=== PATIENT | male | born 1990 | race Two or more races ===

== ENCOUNTER 2018-09-25 09:38 | Emergency (ER) | payer SELFPAY ==
--- NOTE | 2018-09-25 09:52 | EDM.PDOCBH ---
ED HPI GENERAL MEDICAL PROBLEM - General Chief Complaint: Behavioral/Psych Stated Complaint: UNKNOWN Time Seen by Provider: 09/25/18 09:40 Source of Information: Reports: Patient History Limitations: Reports: No Limitations - History of Present Illness INITIAL COMMENTS - FREE TEXT/NARRATIVE: History of present illness: []Patient was sent in from the [place] clinic after a 30 minute phone call with a new provider that he stated he was feeling more isolated. He denied suicidal or homicidal ideation but was sent here for a "mental health evaluation". Patient states he started a new job 2 weeks ago that is a new type of job that he feels he is still in the learning curve and he switch schedules to working nights. He has medical appointments but is having a difficult time scheduling them due to his sleep schedule. Patient has not had any medication changes but has altered the times he has taken his meds due to his new work schedule. Patient states he feels good that the [place] hasn't spent a good amount of time talking with him and referred him to the ER. He is comfortable going home and he reiterates that he is not suicidal or homicidal at this time. I also spoke to his who is at the bedside she states that this feeling he has his ongoing and stable and she does not see any concern that his depression is escalating. Review of systems: As per history of present illness and below otherwise all systems reviewed and negative. Past medical history: As per history of present illness and as reviewed below otherwise noncontributory. Surgical history: As per history of present illness and as reviewed below otherwise noncontributory. Social history: No reported history of drug or alcohol abuse. Family history: As per history of present illness and as reviewed below otherwise noncontributory. Physical exam: General: Well developed, well nourished in NAD HEENT: Atraumatic, normocephalic, pupils reactive, negative for conjunctival pallor or scleral icterus, mucous membranes moist, throat clear, neck supple, nontender, trachea midline. Lungs: Clear to auscultation, breath sounds equal bilaterally, chest nontender. Heart: S1S2, regular, negative for clicks, rubs, or JVD. Abdomen: NABS, Soft, nondistended, nontender. Negative for masses or hepatosplenomegaly. Negative for costovertebral tenderness. Pelvis: Stable nontender. Genitourinary: Deferred. Rectal: Deferred. Extremities: Atraumatic, negative for cords or calf pain. Neurovascular unremarkable. Neuro: Awake, alert, oriented. Cranial nerves II through XII unremarkable. Cerebellum unremarkable. Motor and sensory unremarkable throughout. Exam nonfocal. Skin:warm and dry Psych: Patient is alert, oriented, Diagnostics: None Therapeutics: None ED Course: Stable Impression: Medical Screening exam Prescriptions: None Plan: Resources for [facility] [employer] services and [employer] hotline given to patient. Definitive disposition and diagnosis as appropriate pending reevaluation and review of above. - Related Data Allergies Allergy/AdvReac Type Severity Reaction Status Date / Time No Known Allergies Allergy Verified 09/25/18 09:53 ED ROS GENERAL - Review of Systems Review Of Systems: ROS reveals no pertinent complaints other than HPI. ED EXAM, BEHAVIORAL HEALTH - Physical Exam Exam: See Below COURSE, BEHAVIORAL HEALTH COMP - Course Vital Signs: Last Vital Signs Temp 97.2 F 09/25/18 09:49 Pulse 67 09/25/18 09:49 Resp 16 09/25/18 09:49 BP 124/84 09/25/18 09:49 Pulse Ox 98 09/25/18 09:49 Departure - Departure Time of Disposition: 10:18 Disposition: Home, Self-Care 01 Condition: Good Clinical Impression: Encounter for medical screening examination - Discharge Information *PRESCRIPTION DRUG MONITORING PROGRAM REVIEWED*: No *COPY OF PRESCRIPTION DRUG MONITORING REPORT IN PATIENT PAULO: No Instructions: Medical Screening Exam Referrals: PCP,None [Primary Care Provider] - Forms: ED Department Discharge Additional Instructions: The following information is given to patients seen in the emergency department who are being discharged to home. This information is to outline your options for follow-up care. We provide all patients seen in our emergency department with a follow-up referral. The need for follow-up, as well as the timing and circumstances, are variable depending upon the specifics of your emergency department visit. If you don't have a primary care physician on staff, we will provide you with a referral. We always advise you to contact your personal physician following an emergency department visit to inform them of the circumstance of the visit and for follow-up with them and/or the need for any referrals to a consulting specialist. The emergency department will also refer you to a specialist when appropriate. This referral assures that you have the opportunity for follow-up care with a specialist. All of these measure are taken in an effort to provide you with optimal care, which includes your follow-up. Under all circumstances we always encourage you to contact your private physician who remains a resource for coordinating your care. When calling for follow-up care, please make the office aware that this follow-up is from your recent emergency room visit. If for any reason you are refused follow-up, please contact the [facility] Emergency Department at and asked to speak to the emergency department charge nurse. Follow-up with primary care, [place] [facility] if needed, and return if any suicidal thoughts occur.
== END 2018-09-25 10:40 | disposition home or self-care (01) ==
LOC: MW.ED 09:38
DX: Z13.9 Encounter for screening, unspecified (principal)
CPT/HCPCS: 99283

== ENCOUNTER 2018-10-29 13:35 | Emergency (ER) | payer OTHER ==
[2018-10-29] MEDS ORDERED: LORazepam 1 MG Tab PO ONE ×2 (14:26→14:27)
--- NOTE | 2018-10-29 14:54 | EDM.PDOC ---
ED HPI GENERAL MEDICAL PROBLEM - General Chief Complaint: General Stated Complaint: MEDICAL CLEARANCE Time Seen by Provider: 10/29/18 13:51 Source of Information: Reports: Patient, Police History Limitations: Reports: No Limitations - History of Present Illness INITIAL COMMENTS - FREE TEXT/NARRATIVE: HISTORY AND PHYSICAL: History of present illness: Patient is a 28-year-old male who is brought to the emergency room by law enforcement for medical clearance and mental health evaluation. Law enforcement apprehended patient after assaulting his . Patient reported that he planned to kill himself. Patient continues to have suicidal ideations, reports these have been ongoing intermittently over the past several years. States he has a history of anxiety, depression, suicidal ideation with last mental health evaluation being in 2013. He currently does see a primary care provider who has prescribed him hydralazine and duloxetine. States he has had some tele-psych evaluations for medication management. Patient denies any fever, chills, headache, change in vision, syncope or near syncope. Denies any chest pain, back pain, shortness of breath or cough. Denies any abdominal pain, nausea, vomiting, diarrhea, constipation or dysuria. Patient has been eating and drinking appropriately. Denies any recent drug or alcohol abuse. Review of systems: As per history of present illness and below otherwise all systems reviewed and negative. Past medical history: As per history of present illness and as reviewed below otherwise noncontributory. Surgical history: As per history of present illness and as reviewed below otherwise noncontributory. Social history: See social history for further information Family history: As per history of present illness and as reviewed below otherwise noncontributory. Physical exam: General: Well-developed and well-nourished 28-year-old male. Alert and oriented. Flat and nontoxic appearing and in no acute distress. HEENT: Atraumatic, normocephalic, pupils equal and reactive bilaterally, negative for conjunctival pallor or scleral icterus, mucous membranes moist, trachea midline. No drooling or trismus noted. No meningeal signs. No hot potato voice noted. Lungs: Clear to auscultation, breath sounds equal bilaterally, chest nontender. Heart: S1S2, regular rate and rhythm without overt murmur Abdomen: Soft, nondistended, nontender. Negative for masses. Negative for costovertebral tenderness. Pelvis is stable nontender. Skin: Intact, warm, dry. No lesions or rashes noted. Extremities: Atraumatic, moves all extremities per self without difficulty or deficits, negative for cords or calf pain. Neurovascular unremarkable. Neuro: Awake, alert, oriented. Cranial nerves II through XII unremarkable. Cerebellum unremarkable. Motor and sensory unremarkable throughout. Exam nonfocal. Notes: Enforcement states they're going to release him from their custody and would like our ambulance crew to transport this patient. A mental health emergency admission form was completed on this patient. Lab work is still pending at this time. Vital signs are stable. Physical examination is unremarkable. 1400: [facility] was contacted, no beds available at this time. 14:15[facility] was contacted, Dr. Allen, is agreeable to accepting this patient. He will be a direct admission. Diagnostics: CBC, CMP, UA, TSH, Acetaminophen, Salicylate, Drug Screen, ETOH Therapeutics: Ativan PO Impression: Mood Disorder, unspecified Suicidal ideation Plan: Transfer to [facility] for mental health evaluation. Going via ground EMS Definitive disposition and diagnosis as appropriate pending reevaluation and review of above. Right Shoulder Pain Score (Numeric/FACES): 8 - Related Data Allergies Allergy/AdvReac Type Severity Reaction Status Date / Time No Known Allergies Allergy Verified 10/29/18 13:48 Home Meds: Home Meds FLUoxetine HCl [Fluoxetine] 20 mg PO DAILY 09/25/18 [History] hydrOXYzine HCl [hydrOXYzine] 1 tab PO TID PRN 09/25/18 [History] Past Medical History HEENT History: Reports: Cataract Psychiatric History: Reports: Anxiety, Bipolar, Depression, Mood Swings, OCD, PTSD - Infectious Disease History Infectious Disease History: Reports: Chicken Pox - Past Surgical History GI Surgical History: Reports: Appendectomy Musculoskeletal Surgical History: Reports: Other (See Below) Other Musculoskeletal Surgeries/Procedures:: Right Ankle Social & Family History - Family History Cardiac: Reports: CAD, Hypertension Neurological: Reports: CVA - Tobacco Use Smoking Status *Q: Current Every Day Smoker Years of Tobacco use: 10 Packs/Tins Daily: 1 - Caffeine Use Caffeine Use: Reports: Coffee, Energy Drinks, Soda, Tea - Recreational Drug Use Recreational Drug Use: No ED ROS GENERAL - Review of Systems Review Of Systems: ROS reveals no pertinent complaints other than HPI. ED EXAM, GENERAL - Physical Exam Exam: See Below (See dictation) Course - Vital Signs Last Recorded V/S: Last Vital Signs Temp Pulse 66 10/29/18 13:48 Resp 17 10/29/18 13:48 BP 133/70 10/29/18 13:48 Pulse Ox 96 10/29/18 13:48 - Orders/Labs/Meds Orders: Active Orders 24 hr Category Date Time Status ACETAMINOPHEN [CHEM] Stat Lab 10/29/18 14:23 Received COMPREHENSIVE METABOLIC PN,CMP [CHEM] Stat Lab 10/29/18 14:23 Received ETHANOL BLOOD MEDICAL [CHEM] Stat Lab 10/29/18 14:23 Received SALICYLATE [CHEM] Stat Lab 10/29/18 14:23 Received TSH [CHEM] Stat Lab 10/29/18 14:23 Received UA RFX FLYNN AND CULT IF INDIC [URIN] Stat Lab 10/29/18 14:22 Received Labs: Laboratory Tests 10/29/18 10/29/18 Range/Units 14:22 14:23 WBC 5.91 (4.0-11.0) K/uL RBC 4.81 (4.50-5.90) M/uL Hgb 13.8 (13.0-17.0) g/dL Hct 41.1 (38.0-50.0) % MCV 85.4 (80.0-98.0) fL MCH 28.7 (27.0-32.0) pg MCHC 33.6 (31.0-37.0) g/dL RDW Std Deviation 42.6 (28.0-62.0) fl RDW Coeff of Earnestine 14 (11.0-15.0) % Plt Count 177 (150-400) K/uL MPV 11.90 (7.40-12.00) fL Neut % (Auto) 44.7 L (48.0-80.0) % Lymph % (Auto) 43.3 H (16.0-40.0) % Norton % (Auto) 7.1 (0.0-15.0) % Eos % (Auto) 4.4 (0.0-7.0) % Baso % (Auto) 0.5 (0.0-1.5) % Neut # (Auto) 2.6 (1.4-5.7) K/uL Lymph # (Auto) 2.6 H (0.6-2.4) K/uL Norton # (Auto) 0.4 (0.0-0.8) K/uL Eos # (Auto) 0.3 (0.0-0.7) K/uL Baso # (Auto) 0.0 (0.0-0.1) K/uL Nucleated RBC % 0.0 /100WBC Nucleated RBCs # 0 K/uL Urine Opiates Screen NEGATIVE (NEGATIVE) Ur Oxycodone Screen NEGATIVE (NEGATIVE) Urine Methadone Screen NEGATIVE (NEGATIVE) Ur Barbiturates Screen NEGATIVE (NEGATIVE) Ur Phencyclidine Scrn NEGATIVE (NEGATIVE) Ur Amphetamine Screen NEGATIVE (NEGATIVE) U Methamphetamines Scrn NEGATIVE (NEGATIVE) U Benzodiazepines Scrn NEGATIVE (NEGATIVE) U Cocaine Metab Screen NEGATIVE (NEGATIVE) U Marijuana (THC) Screen NEGATIVE (NEGATIVE) Meds: Medications Discontinued Medications Generic Name Dose Route Start Last Admin Trade Name Freq PRN Reason Stop Dose Admin Lorazepam 1 mg 10/29/18 14:26 10/29/18 14:32 Ativan PO 10/29/18 14:27 1 mg ONETIME ONE Administration Lorazepam 1 mg 10/29/18 14:27 Ativan PO 10/29/18 14:28 ONETIME ONE Departure - Departure Time of Disposition: 14:54 Disposition: DC/Tfer to Psych Hosp/Unit 65 Clinical Impression: Suicidal ideation, Mood disorder - Discharge Information Referrals: PCP,None [Primary Care Provider] - - My Orders Last 24 Hours: My Active Orders 10/29/18 14:22 UA RFX FLYNN AND CULT IF INDIC [URIN] Stat 10/29/18 14:23 ACETAMINOPHEN [CHEM] Stat COMPREHENSIVE METABOLIC PN,CMP [CHEM] Stat ETHANOL BLOOD MEDICAL [CHEM] Stat SALICYLATE [CHEM] Stat TSH [CHEM] Stat - Assessment/Plan Last 24 Hours: My Active Orders 10/29/18 14:22 UA RFX FLYNN AND CULT IF INDIC [URIN] Stat 10/29/18 14:23 ACETAMINOPHEN [CHEM] Stat COMPREHENSIVE METABOLIC PN,CMP [CHEM] Stat ETHANOL BLOOD MEDICAL [CHEM] Stat SALICYLATE [CHEM] Stat TSH [CHEM] Stat
[2018-10-29 15:10] LABS: ACETAMINOPHEN <2.0 ug/mL
[2018-10-29 15:13] LABS: CHLORIDE,CL 107 mmol/L (98-107); SODIUM,NA 143 mmol/L (136-148)
== END 2018-10-29 15:23 ==
LOC: MW.ED 13:35
DX: R45.851 Suicidal ideations (principal); F39 Unspecified mood [affective] disorder; F31.9 Bipolar disorder, unspecified; F41.9 Anxiety disorder, unspecified; F17.210 Nicotine dependence, cigarettes, uncomplicated; Z79.899 Other long term (current) drug therapy
CPT/HCPCS: 36415; 80053; 80305; 81001; 84443; 85025; 99284; A9270; G0480

== ENCOUNTER 2019-12-07 15:44 | Emergency (ER) | payer BC, OTHER ==
--- NOTE | 2019-12-07 16:17 | EDM.PDOC ---
ED HPI GENERAL MEDICAL PROBLEM - General Chief Complaint: ENT Problem Stated Complaint: FLU SYMPTOMS Time Seen by Provider: 12/07/19 15:45 Source of Information: Reports: Patient History Limitations: Reports: No Limitations - History of Present Illness INITIAL COMMENTS - FREE TEXT/NARRATIVE: HISTORY AND PHYSICAL: History of present illness: Patient is a 29-year-old male who presents to the emergency room with complaints of shortness of breath, cough and body aches for the past 4 days. He states he works around a lot of people and frequently is around persons who appear ill. He states he had a temperature of 100 degrees last evening, has been trying to increase his fluids take vitamin C, and alternate Tylenol and ibuprofen. Patient denies any headache, change in vision, syncope or near syncope. Denies any chest pain, back pain, abdominal pain, nausea, vomiting, diarrhea, constipation or dysuria. Patient has been eating and drinking appropriately. Review of systems: As per history of present illness and below otherwise all systems reviewed and negative. Past medical history: As per history of present illness and as reviewed below otherwise noncontributory. Surgical history: As per history of present illness and as reviewed below otherwise noncontributory. Social history: See social history for further information Family history: As per history of present illness and as reviewed below otherwise noncontributory. Physical exam: General: Well developed and well nourished. Alert and orientated x 3. Nontoxic in appearance and in no acute distress. Vital signs are stable and have been reviewed by me. Nursing notes were reviewed. HEENT: Atraumatic, normocephalic, pupils equal and reactive bilaterally, negative for conjunctival pallor or scleral icterus, mucous membranes moist, TMs normal bilaterally, throat clear, neck supple, nontender, trachea midline. No drooling or trismus noted. No meningeal signs. No hot potato voice noted. Lungs: Faint expiratory wheezing noted to posterior bases bilaterally otherwise clear to auscultation, breath sounds equal bilaterally, chest nontender. Normal work of breathing, no accessory muscles used. Heart: S1S2, regular rate and rhythm without overt murmur Abdomen: Soft, nondistended, nontender. Skin: Intact, warm, dry. No lesions or rashes noted. Hematologic: No petechiae or purpra. Mucosa appropriate color and normal nail bed color and refill. Extremities: Atraumatic, moves all extremities per self without difficulty or deficits, negative for cords or calf pain. Neurovascular unremarkable. Neuro: Awake, alert, oriented. Cranial nerves II through XII unremarkable. Cerebellum unremarkable. Motor and sensory unremarkable throughout. Exam nonfocal. Psychiatric: Mood and affect are appropriate. Normal thought process. Answering questions appropriately. Differential diagnosis includes but is not limited to: COVID-19, respiratory illness, pneumonia, viral illness. Notes: Negative COVID and chest x-ray. We discussed signs and symptoms that would prompt them to return to the Emergency Department. Medication, follow up and supportive care measures were reviewed and discussed. Voices understanding and is agreeable to plan of care. Denies any further questions or concerns at this time. Diagnostics: COVID-19, chest x-ray Therapeutics: None Prescription: Medrol Dosepak Impression: Viral upper respiratory illness Plan: 1. Today your physical exam was normal. Chest x-ray does not show any sign of infection. COVID-19 screening is negative. We always encourage you to follow up with your primary care provider or recommended specialist in the next few days for re-evaluation and further care/management. If your symptoms should worsen, new symptoms develop or any of the signs and symptoms we discussed should arise please return to the emergency room or call 911 (if needed). 2. You Can alternate Tylenol and/or ibuprofen as needed for pain management. 3. Medrol Dosepak as directed. Definitive disposition and diagnosis as appropriate pending reevaluation and review of above. head/ENT Pain Score (Numeric/FACES): 6 - Related Data Allergies Allergy/AdvReac Type Severity Reaction Status Date / Time No Known Allergies Allergy Verified 12/07/19 15:52 Home Meds: Home Meds hydrOXYzine HCL [hydrOXYzine] 1 tab PO TID PRN 09/25/18 [History] Ibuprofen 800 mg PO ASDIRECTED PRN 12/07/19 [History] methylPREDNISolone [Medrol] 1 dose PO DAILY 6 Days #1 dospk 12/07/19 [Rx] Past Medical History HEENT History: Reports: Cataract Psychiatric History: Reports: Anxiety, Bipolar, Depression, Mood Swings, OCD, P TSD - Infectious Disease History Infectious Disease History: Reports: Chicken Pox - Past Surgical History GI Surgical History: Reports: Appendectomy Musculoskeletal Surgical History: Reports: Other (See Below) Other Musculoskeletal Surgeries/Procedures:: Right Ankle Social & Family History - Family History Cardiac: Reports: CAD, Hypertension Neurological: Reports: CVA - Tobacco Use Smoking Status *Q: Former Smoker Used Tobacco, but Quit: Yes Month/Year Tobacco Last Used: 2019 - Caffeine Use Caffeine Use: Reports: Coffee, Energy Drinks, Soda, Tea - Recreational Drug Use Recreational Drug Use: No ED ROS ENT - Review of Systems Review Of Systems: Comprehensive ROS is negative, except as noted in HPI. ED EXAM, ENT - Physical Exam Exam: See Below (See dictation) Course - Vital Signs Last Recorded V/S: Last Vital Signs Temp 97.6 F 12/07/19 17:36 Pulse 67 12/07/19 17:36 Resp 16 12/07/19 17:36 BP 118/55 L 12/07/19 17:36 Pulse Ox 97 12/07/19 17:36 - Orders/Labs/Meds Labs: Laboratory Tests 12/07/19 Range/Units 16:50 COVID-19 (DAKOTAH) NEGATIVE (NEGATIVE) Departure - Departure Time of Disposition: 17:23 Disposition: Home, Self-Care 01 Clinical Impression: Viral upper respiratory illness - Discharge Information Prescriptions: methylPREDNISolone [Medrol] 1 dose PO DAILY 6 Days #1 dospk Instructions: Viral Respiratory Infection, [id number] Referrals: PCP,None [Primary Care Provider] - Forms: ED Department Discharge Additional Instructions: The following information is given to patients seen in the emergency department who are being discharged to home. This information is to outline your options for follow-up care. We provide all patients seen in our emergency department with a follow-up referral. The need for follow-up, as well as the timing and circumstances, are variable depending upon the specifics of your emergency department visit. If you don't have a primary care physician on staff, we will provide you with a referral. We always advise you to contact your personal physician following an emergency department visit to inform them of the circumstance of the visit and for follow-up with them and/or the need for any referrals to a consulting specialist. The emergency department will also refer you to a specialist when appropriate. This referral assures that you have the opportunity for follow-up care with a specialist. All of these measure are taken in an effort to provide you with optimal care, which includes your follow-up. Under all circumstances we always encourage you to contact your private physician who remains a resource for coordinating your care. When calling for follow-up care, please make the office aware that this follow-up is from your recent emergency room visit. If for any reason you are refused follow-up, please contact the [facility] Emergency Department at and asked to speak to the emergency department charge nurse. [facility] [address] [place] [address] [facility] [address] [place] [address] Thank you for choosing the [facility] emergency department in [place] for your medical needs today. It was a pleasure caring for you. Today you were seen in the emergency department for shortness of breathe and cough. 1. Today your physical exam was normal. Chest x-ray does not show any sign of infection/pneumonia. COVID-19 screening is negative. We always encourage you to follow up with your primary care provider or recommended specialist in the next few days for re-evaluation and further care/management. If your symptoms should worsen, new symptoms develop or any of the signs and symptoms we discussed should arise please return to the emergency room or call 911 (if needed). 2. You Can alternate Tylenol and/or ibuprofen as needed for pain management. 3. Medrol Dosepak as directed. Sepsis Event Note (ED) - Evaluation Sepsis Screening Result: No Definite Risk
--- NOTE | 2019-12-07 17:14 | CR ---
Chest: Frontal view of the chest was obtained. Comparison: No prior chest x-ray. Heart size and mediastinum are normal. Lungs are clear with no acute parenchymal change. Bony structures are grossly intact. Impression: 1. Nothing acute is appreciated on frontal chest x-ray. Diagnostic code #1 This report was dictated in MDT
== END 2019-12-07 17:46 | disposition home or self-care (01) ==
LOC: MW.ED 15:44
DX: J06.9 Acute upper respiratory infection, unspecified (principal); Z87.891 Personal history of nicotine dependence; Z20.828 Contact with and (suspected) exposure to other viral communicable diseases
CPT/HCPCS: 71045; 71045-26; 99283; 99285-25; U0002